=== PATIENT | male | born 1960 | race Caucasian/White ===

== ENCOUNTER 2020-06-07 05:49 | Emergency (ER) | payer MEDICAID ==
[~2020-06-07] VITALS: Ht 175.3 cm; Wt 69.5 kg
[2020-06-07] MEDS ORDERED: IBUPROFEN 600 MG TABLET ONE (06:20)
--- NOTE | 2020-06-07 06:27 | NUR ---
c/o having withdrawal symptoms. patient uses heroin , meth and alcohol. last use of heroin around 6 pm last night. denies N/V. + chills, + bodyaches
[2020-06-07] MEDS ORDERED: IBUPROFEN 200 MG TABLET PO ONE (06:30)
[2020-06-07 06:32] LABS: BASOPHILS % (AUTO) 1 % (0-1); EOSINOPHILS % (AUTO) 0 % (1-7); LYMPHOCYTES % (AUTO) 26 % (22-44); MEAN CORPUSCULAR HEMOGLOBIN 29.6 pg (27.5-34.5); MEAN CORPUSCULAR HGB CONC 33.9 g/dL (33.2-36.2); MEAN PLATELET VOLUME 7.4 fL (7.4-10.4); MONOCYTES % (AUTO) 10 % (2-9); NEUTROPHILS % (AUTO) 64 % (42-75); PLATELET COUNT 379 x10^3/uL (130-400); RED BLOOD COUNT 4.93 x10^6/uL (4.38-5.82); RED CELL DISTRIBUTION WIDTH 13.5 % (9.4-14.8)
[2020-06-07 06:36] LABS: ALANINE AMINOTRANSFERASE 26 U/L (12-78); ALBUMIN 3.6 g/dL (3.4-5.0); ANION GAP 5 mmol/L (5-15); CALCIUM 9.2 mg/dL (8.5-10.1); CHLORIDE 104 mmol/L (98-107); CREATININE 0.95 mg/dL (0.7-1.3)
[2020-06-07 06:39] LABS: ALKALINE PHOSPHATASE 90 U/L (45-117); BILIRUBIN,TOTAL 0.4 mg/dL (0.2-1.0); TOTAL PROTEIN 8.7 g/dL (6.4-8.2)
--- NOTE | 2020-06-07 06:39 | NUR ---
2 peanut butter and jellie sandwiches and 2 oj given to pt
[2020-06-07 06:46] LABS: MD NO
[2020-06-07 08:11] VITALS: BP 138/100
== END 2020-06-07 08:18 | disposition home or self-care (01) ==
LOC: ED 06:33
DX: F19.14 Other psychoactive substance abuse with psychoactive substance-induced mood disorder (principal); F11.19 Opioid abuse with unspecified opioid-induced disorder; R94.31 Abnormal electrocardiogram [ECG] [EKG]
CPT/HCPCS: 36415; 80053; 85025; 93005; 99284

== ENCOUNTER 2020-09-11 00:45 | Emergency (ER) | payer MEDICAID ==
[~2020-09-11] VITALS: Ht 175.3 cm; Wt 69.8 kg
--- NOTE | 2020-09-11 01:09 | NUR ---
pt arrived to room, c/o exhaustion and tiredness. pt a&ox4. to bedside to gela pt.
--- NOTE | 2020-09-11 01:21 | NUR ---
PTS SISTER WENT HOME TO REST, AND IS AVAILABLE TO [employer] PT IF HE IS DISCHARGED. PT UPDATED TO SITUATION, AND THAT HIS SISTER IS GOING HOME TO REST BUT CAN PICK HIM UP.
--- NOTE | 2020-09-11 01:22 | NUR ---
PT SWABBED BY FOR COVID, AND SAMPLE WALKED TO LAB. PORTABLE CXRY ORDERED WELL. PT IN NO ACUTE DISTRESS, AND GOOD AERATION AND OXYGENATION.
[2020-09-11 02:21] VITALS: BP 135/85
== END 2020-09-11 02:31 | disposition home or self-care (01) ==
LOC: ED 01:15
DX: J40 Bronchitis, not specified as acute or chronic (principal); Z20.822 Contact with and (suspected) exposure to COVID-19; M79.10 Myalgia, unspecified site; R05 Cough; R06.02 Shortness of breath; R94.31 Abnormal electrocardiogram [ECG] [EKG]; F17.210 Nicotine dependence, cigarettes, uncomplicated; Z88.8 Allergy status to other drugs, medicaments and biological substances
CPT/HCPCS: 71045; 93005; 99285; 99406; U0003